=== PATIENT | male | born 1985 | race American Indian/Alaskan Native ===

== ENCOUNTER 2021-11-08 11:21 | Emergency (ER) | payer OTHER ==
[2021-11-08 11:31] VITALS: BP 120/81
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
--- NOTE | 2021-11-09 10:23 | Electrocardiograph Report ---
[facility] Test Date: 2021-11-08 Test Time: 11:42:13 Pat Name: SAVANA BLAKELY Department: Room: Gender: M [employer]: DAVID : 1985 Requested By: SHER EDMOND Order Number: [id number] Reading MD: Herson Atkins Measurements Intervals [place] Rate: 77 P: 51 MN: 159 QRS: 62 QRSD: 87 T: 50 QT: 376 QTc: 426 Interpretive Statements Sinus rhythm Consider left ventricular hypertrophy ST elev, probable normal early repol pattern No previous ECG available for comparison Electronically Signed On 11-09-2021 10:23:06 EDT by Herson Atkins
== END 2021-11-08 17:46 | disposition home or self-care (01) ==
LOC: ED 11:21
DX: S29.011A Strain of muscle and tendon of front wall of thorax, initial encounter (principal); Z79.899 Other long term (current) drug therapy; V87.7XXA Person injured in collision between other specified motor vehicles (traffic), initial encounter; Y93.89 Activity, other specified; Y92.488 Other paved roadways as the place of occurrence of the external cause; Y99.8 Other external cause status
CPT/HCPCS: 93005; 99283